=== PATIENT | male | born 1975 | race Caucasian/White ===

== ENCOUNTER 2018-03-31 14:24 | Emergency (ER) | payer OTHER ==
[2018-03-31 16:48] LABS: ADD UMIC YES; UR ASCORBIC ACID NEGATIVE (NEGATIVE); UR BACTERIA FEW /HPF (NONE SEEN); UR BILIRUBIN (Dip) NEGATIVE (NEGATIVE); UR BLOOD (Dip) 2+ mg/dL (NEGATIVE); UR CLARITY CLOUDY (CLEAR); UR COLOR YELLOW (YELLOW); UR GLUCOSE (Dip) NEGATIVE (NEGATIVE); UR KETONES (Dip) NEGATIVE (NEGATIVE); UR LEUKOCYTE ESTERASE (Dip) 3+ Leu/ul (NEGATIVE); UR MUCUS FEW /HPF (NONE SEEN); UR NITRITE (Dip) NEGATIVE (NEGATIVE); UR RBC 34 /HPF (0-5); UR SPECIFIC GRAVITY (Dip) 1.019 (1.003-1.030); UR SQUAMOUS EPITHELIAL CELL MODERATE /HPF (FEW); UR TOTAL PROTEIN (Dip) NEGATIVE (NEGATIVE); UR UROBILINOGEN (Dip) NEGATIVE (NEGATIVE); UR WBC > 182 /HPF (0-5)
== END 2018-03-31 17:09 | disposition home or self-care (01) ==
LOC: FTE 14:24
DX: N48.89 Other specified disorders of penis (principal)
CPT/HCPCS: 81001; 87086; 99284

== ENCOUNTER 2018-05-11 07:33 | Day surgery (SDC) | payer OTHER ==
[~2018-05-11 07:33] MED LIST: CIPROFLOXACIN 400MG/D5W 200 ML IVPB; GLYCOPYRROLATE 0.4 MG INJ
[2018-05-11] MEDS ORDERED: DEXTROSE 5%-0.45% NACL 1,000 ML IV (08:52)
[2018-05-11] MEDS ORDERED: DOCUSATE SODIUM 100 MG CAP PO (09:00)
[2018-05-11] MEDS ORDERED: MAGNESIUM HYDROXIDE 30ML CUP PO (09:00)
[2018-05-11] MEDS ORDERED: IOHEXOL 300MG/ML 30 ML BTL (09:01)
[2018-05-11] MEDS ORDERED: PROPOFOL 20 ML (09:03)
[2018-05-11] MEDS ORDERED: ROCURONIUM 50 MG INJ (09:03)
[2018-05-11] MEDS ORDERED: CIPROFLOXACIN 400MG/D5W 200 ML (09:03)
[2018-05-11] MEDS ORDERED: LIDOCAINE 2% (SDV) 5 ML INJ (09:04)
[2018-05-11] MEDS ORDERED: ONDANSETRON 4 MG INJ (09:22)
[2018-05-11] MEDS ORDERED: DEXAMETHASONE 4 MG/ML 1 ML INJ (09:22)
[2018-05-11] MEDS ORDERED: ACETAMINOPHEN 1000MG/100ML IV 100 ML (09:53)
[2018-05-11] MEDS: BUPIVACAINE 0.5% (SDV) 30 ML INJ (10:51)
[2018-05-11] MEDS ORDERED: GLYCOPYRROLATE 0.4 MG INJ (10:56)
[2018-05-11] MEDS ORDERED: NEOSTIGMINE 3 MG/3 ML SYRINGE (10:56)
[2018-05-11] MEDS: HYDROmorphONE 1 MG/5 ML IV SYRINGE IV ×4 (11:24→12:12)
[2018-05-11] MEDS ORDERED: ONDANSETRON 4 MG INJ IV (11:30)
[2018-05-11] MEDS ORDERED: HYDROmorphONE 1 MG/5 ML IV SYRINGE IV (11:30)
[2018-05-11] MEDS ORDERED: OXYCODONE/ACETAMINOPHEN (5/325) TAB PO ×2 (11:30)
[2018-05-11] MEDS ORDERED: METOCLOPRAMIDE 10 MG INJ IV (11:30)
[2018-05-11] MEDS ORDERED: hydrALAzine 20 MG INJ IV (11:30)
[2018-05-11] MEDS ORDERED: FENTAnyl 50 MCG/ML VIAL IV ×2 (11:30)
[2018-05-11] MEDS ORDERED: LABETALOL HCL 20MG INJ IV (11:30)
[2018-05-11] MEDS ORDERED: EPHEDrine SULFATE 50 MG/5 ML SYG IV (11:30)
[2018-05-11] MEDS ORDERED: ALBUTEROL 0.083% (NEB) 2.5 MG/3 ML AMP HHN (11:30)
[2018-05-11] MEDS ORDERED: DIPHENHYDRAMINE 50 MG INJ IV (11:30)
[2018-05-11] MEDS: FENTAnyl 50 MCG/ML VIAL IV (11:46)
[2018-05-11] MEDS: MEPERIDINE 25 MG INJ IV (12:02)
[2018-05-11] MEDS: HYDROCODONE/APAP (5/325) TAB PO (12:50)
[2018-05-11] MEDS ORDERED: CIPROFLOXACIN 500 MG TAB PO (18:00)
[2018-05-11] MEDS ORDERED: TAMSULOSIN (SR) 0.4 MG CAP PO (21:00)
== END 2018-05-11 14:23 | disposition home or self-care (01) ==
LOC: SDS 07:33 → REC 08:52
DX: N48.0 Leukoplakia of penis (principal); N48.6 Induration penis plastica; N35.9 Urethral stricture, unspecified; N48.89 Other specified disorders of penis
CPT/HCPCS: 11426; 87086; 88304

== ENCOUNTER 2018-08-31 08:24 | Day surgery (SDC) | payer OTHER ==
[2018-08-31] MEDS ORDERED: DIPHENHYDRAMINE 50 MG INJ IV (09:00)
[2018-08-31] MEDS ORDERED: FENTAnyl 50 MCG/ML VIAL IV (09:00)
[2018-08-31] MEDS ORDERED: ONDANSETRON 4 MG INJ IV (09:00)
[2018-08-31] MEDS ORDERED: HYDROmorphONE 1 MG/5 ML IV SYRINGE IV (09:00)
[2018-08-31] MEDS ORDERED: ALBUTEROL 0.083% (NEB) 2.5 MG/3 ML AMP HHN (09:00)
[2018-08-31] MEDS ORDERED: morphine (1 MG/ML) 10ML SYRINGE IV ×2 (09:00)
[2018-08-31] MEDS ORDERED: OXYCODONE/ACETAMINOPHEN (5/325) TAB PO (09:00)
[2018-08-31] MEDS ORDERED: LABETALOL HCL 20MG INJ IV (09:00)
[2018-08-31] MEDS ORDERED: MEPERIDINE 25 MG INJ IV (09:00)
[2018-08-31] MEDS: ACETAMINOPHEN 500 MG TAB PO (09:11)
[2018-08-31 09:17] LABS: ADD MAN DIFF? NO
[2018-08-31 09:19] LABS: WHITE BLOOD COUNT 9.6 10^3/ul (4.8-10.8)
[2018-08-31 09:19] LABS: BASOPHIL # 0.1 10^3/ul (0.0-0.1); BASOPHILS % 0.5 % (0.0-2.0); EOSINOPHILS # 0.2 10^3/ul (0.0-0.5); EOSINOPHILS % 1.6 % (0.0-7.0); HEMOGLOBIN 14.8 g/dl (14.0-18.0); LYMPHOCYTES # 2.3 10^3/ul (0.8-2.9); LYMPHOCYTES % 23.7 % (15.0-51.0); MEAN CORPUSCULAR HEMOGLOBIN 28.1 pg (29.0-33.0); MEAN CORPUSCULAR HGB CONC 32.9 g/dl (32.0-37.0); MEAN CORPUSCULAR VOLUME 85.4 fl (82.0-101.0); MEAN PLATELET VOLUME 12.5 fl (7.4-10.4); MONOCYTE # 0.9 10^3/ul (0.3-0.9); MONOCYTES % 9.1 % (0.0-11.0); NEUTROPHIL # 6.2 10^3/ul (1.6-7.5); NEUTROPHILS % 64.6 % (39.0-77.0); PLATELET COUNT 193 10^3/UL (140-415); RED BLOOD COUNT 5.27 10^6/ul (4.70-6.10); RED CELL DISTRIBUTION WIDTH 13.2 % (11.5-14.5)
[2018-08-31 09:39] LABS: INR 0.99; PROTIME 13.2 Sec (11.9-14.9)
[2018-08-31 09:40] LABS: PARTIAL THROMBOPLASTIN TIME 33.4 Sec (23.0-35.0)
[2018-08-31 09:41] LABS: ALANINE AMINOTRANSFERASE 20 IU/L (13-69); ALBUMIN 4.6 g/dl (3.3-4.9); ALBUMIN/GLOBULIN RATIO 1.31; ALKALINE PHOSPHATASE 90 IU/L (42-121); ANION GAP 11 (5-13); ASPARTATE AMINO TRANSFERASE 19 IU/L (15-46); BILIRUBIN,INDIRECT 0.5 mg/dl (0-1.1); BILIRUBIN,TOTAL 0.5 mg/dl (0.2-1.3); BLOOD UREA NITROGEN 12 mg/dl (7-20); CALCIUM 9.6 mg/dl (8.4-10.2); CARBON DIOXIDE 29 mmol/L (21-31); CHLORIDE 103 mmol/L (97-110); Estimated GFR > 60 mL/min (>60); GLUCOSE 108 mg/dl (70-220); POTASSIUM 3.9 mmol/L (3.5-5.1); SODIUM 143 mmol/L (135-144); TOTAL PROTEIN 8.1 g/dl (6.1-8.1)
[2018-08-31] MEDS ORDERED: FAMOTIDINE 20 MG INJ (09:43)
[2018-08-31] MEDS ORDERED: DEXAMETHASONE 4 MG/ML 1 ML INJ (09:43)
[2018-08-31] MEDS ORDERED: PROPOFOL 40 ML (09:43)
[2018-08-31] MEDS ORDERED: LIDOCAINE 2% (SDV) 5 ML INJ (09:43)
[2018-08-31] MEDS ORDERED: FENTAnyl 50 MCG/ML VIAL ×2 (09:43→11:14)
[2018-08-31] MEDS ORDERED: ONDANSETRON 4 MG INJ (09:43)
[2018-08-31] MEDS ORDERED: MIDAZOLAM 1 MG/ML 2 ML INJ (09:44)
[2018-08-31] MEDS ORDERED: ROCURONIUM 50 MG INJ (10:00)
[2018-08-31] MEDS: BUPIVACAINE 0.25% (MPF) 30 ML INJ (10:22)
[2018-08-31 11:03] LABS: ERYTHROCYTE SEDIMENTATION RATE 4 mm/Hr (0-15)
[2018-08-31] MEDS: BACITRACIN/POLYMYXIN 28.35 GM OINT TOP (11:36)
[2018-08-31] MEDS: HYDROmorphONE 1 MG/5 ML IV SYRINGE IV (12:11)
[2018-08-31] MEDS: FENTAnyl 50 MCG/ML VIAL IV (12:12)
[2018-08-31] MEDS: OXYCODONE/ACETAMINOPHEN (5/325) TAB PO (13:01)
== END 2018-08-31 15:00 | disposition home or self-care (01) ==
LOC: SDS 08:24
DX: N48.0 Leukoplakia of penis (principal); N48.5 Ulcer of penis; N35.919 Unspecified urethral stricture, male, unspecified site; L90.0 Lichen sclerosus et atrophicus
CPT/HCPCS: 53450; 80053; 85025; 85610; 85651; 85730; 88304; 93005